=== PATIENT | male | born 1965 | race Caucasian/White ===

== ENCOUNTER 2018-09-10 14:04 | Emergency (ER) | payer MEDICARE, BC ==
[~2018-09-10] VITALS: Ht 195.6 cm; Wt 93.0 kg
[~2018-09-10 14:04] MED LIST: CARBIDOPA-LEVO1 EAC6; CELEXA20 MG PO; CENTRUM SILVER1 EAC2 PO; CLONAZEPAM 1 MG1 M1; HYDROCODONE-AP1 EAC6 PO; LAMICTAL XR100 MG; LIPITOR10 MG PO; LUTEIN6 MG; OMEGA-31000 M1 PO; REMERON15 MG PO; ROBAXIN 750 MG750 M1 PO; TRAZODONE HCL100 MG PO; ZONEGRAN100 MG
[2018-09-10 15:27] VITALS: BP 131/75
== END 2018-09-10 15:22 | disposition home or self-care (01) ==
LOC: M.ERS 14:04
DX: S01.81XA Laceration without foreign body of other part of head, initial encounter (principal); W01.0XXA Fall on same level from slipping, tripping and stumbling without subsequent striking against object, initial encounter; Y93.89 Activity, other specified; Y92.89 Other specified places as the place of occurrence of the external cause; Y99.8 Other external cause status

== ENCOUNTER 2020-04-28 20:50 | Emergency (ER) | payer MEDICARE, BC ==
[~2020-04-28] VITALS: Ht 193 cm; Wt 87.1 kg
[2020-04-28 21:00] VITALS: BP 116/60
== END 2020-04-28 21:48 | disposition home or self-care (01) ==
LOC: M.ERS 20:50
DX: Z77.098 Contact with and (suspected) exposure to other hazardous, chiefly nonmedicinal, chemicals (principal); Z79.899 Other long term (current) drug therapy

== ENCOUNTER 2021-03-23 11:47 | Emergency (ER) | payer MEDICARE, BC ==
[~2021-03-23] VITALS: Ht 182.9 cm; Wt 92.1 kg
[2021-03-23 12:41] VITALS: BP 105/69
== END 2021-03-23 12:41 | disposition home or self-care (01) ==
LOC: M.ERS 11:47
DX: S01.01XA Laceration without foreign body of scalp, initial encounter (principal); Z79.899 Other long term (current) drug therapy; W01.0XXA Fall on same level from slipping, tripping and stumbling without subsequent striking against object, initial encounter; Y93.89 Activity, other specified; Y92.89 Other specified places as the place of occurrence of the external cause; Y99.8 Other external cause status

== ENCOUNTER 2021-04-15 12:53 | Emergency (ER) | payer MEDICARE, BC ==
[~2021-04-15] VITALS: Ht 175.3 cm; Wt 99.8 kg
[2021-04-15 14:19] VITALS: BP 120/70
[2021-04-15] MEDS ORDERED: POLYMYXIN B/TMP10 ML INTRAOCULR (14:43)
== END 2021-04-15 14:50 | disposition home or self-care (01) ==
LOC: M.ERS 12:53
DX: S05.01XA Injury of conjunctiva and corneal abrasion without foreign body, right eye, initial encounter (principal); Z79.899 Other long term (current) drug therapy; Z77.098 Contact with and (suspected) exposure to other hazardous, chiefly nonmedicinal, chemicals; X58.XXXA Exposure to other specified factors, initial encounter; Y93.89 Activity, other specified; Y92.89 Other specified places as the place of occurrence of the external cause; Y99.8 Other external cause status

== ENCOUNTER 2021-04-16 10:02 | Emergency (ER) | payer MEDICARE, BC ==
[~2021-04-16] VITALS: Ht 195.6 cm; Wt 91.6 kg
[~2021-04-16 10:02] MED LIST changes: +POLYMYXIN B/TMP10 ML INTRAOCULR
[2021-04-16 11:19] VITALS: BP 151/65
== END 2021-04-16 11:19 | disposition home or self-care (01) ==
LOC: M.ERS 10:02
DX: H47.091 Other disorders of optic nerve, not elsewhere classified, right eye (principal); H10.211 Acute toxic conjunctivitis, right eye; Z79.899 Other long term (current) drug therapy